=== PATIENT | male | born 1975 ===

== ENCOUNTER 2022-09-05 19:57 | Emergency (ER) | payer OTHER ==
[2022-09-05] MEDS ORDERED: Amoxicillin/Clavulanate K 875-125 MG Tab PO ONE (23:01)
[2022-09-05] MEDS ORDERED: Ketorolac 30 MG/ML SDV IM STA (23:01)
[2022-09-05] MEDS ORDERED: Lidocaine 2% Viscous Solution 15 ML UD PO ONE (23:02)
== END 2022-09-05 23:54 | disposition home or self-care (01) ==
LOC: MW.ED 19:57
DX: K04.7 Periapical abscess without sinus (principal); I10 Essential (primary) hypertension; Z72.0 Tobacco use
CPT/HCPCS: 99282; A9270